=== PATIENT | female | born 1955 | race Hispanic/Latino ===

== ENCOUNTER 2018-02-02 07:35 | Day surgery (SDC) | payer BC, OTHER ==
[2018-02-01 10:19] VITALS: BMI 30.2
[2018-02-02] MEDS ORDERED: Lactated Ringer's 500 ML IV ONE (10:12)
[2018-02-02] MEDS ORDERED: Propofol 10 mg/ml Inj (20 ML) ONE ×2 (10:14)
[2018-02-02 10:45] VITALS: TEMP 97.8
[2018-02-02 10:55] VITALS: O2SAT 100
[2018-02-02 11:56] VITALS: BP 112/56; PULSE 68; RESP 16
== END 2018-02-02 11:55 | disposition home or self-care (01) ==
LOC: C.ENDO 07:35
PROVIDERS: ATTEND Internal Medicine Gastroenterology
DX: Z12.11 Encounter for screening for malignant neoplasm of colon (principal); K57.30 Diverticulosis of large intestine without perforation or abscess without bleeding; K64.8 Other hemorrhoids
CPT/HCPCS: 45378; J2704; J7120

== ENCOUNTER 2018-08-09 08:15 | Outpatient (CLI) | payer OTHER | END 2018-08-09 08:16 | disposition home or self-care (01) | LOC: C.LAB 08:15 | DX: E78.2 Mixed hyperlipidemia (principal); Z95.5 Presence of coronary angioplasty implant and graft ==

== ENCOUNTER 2018-08-11 07:45 | Outpatient (CLI) | payer OTHER | END 2018-08-11 07:46 | disposition home or self-care (01) | LOC: C.CARD 07:45 | DX: Z95.5 Presence of coronary angioplasty implant and graft (principal); I10 Essential (primary) hypertension; E78.2 Mixed hyperlipidemia ==